=== PATIENT | male | born 1965 | race American Indian/Alaskan Native ===

== ENCOUNTER 2016-09-22 13:34 | Outpatient (CLI) | payer MEDICARE ==
[2016-09-22 14:00] LABS: Hematocrit 39.6 % (35.5-45.6); Hemoglobin 13.2 gm/dl (11.8-15.2); Mean Corpuscular HGB Conc 33 % (32-34); Mean Corpuscular Hemoglobin 32 pg (28-32); Mean Corpuscular Volume 95 fl (84-94); Platelet Count 104 K/mm3 (140-440); Red Blood Count 4.17 M/mm3 (3.65-5.03); Red Cell Distribution Width 13.5 % (13.2-15.2); White Blood Count 3.5 K/mm3 (4.5-11.0)
[2016-09-22 14:25] LABS: Alanine Aminotransferase 35 units/L (7-56); Albumin/Globulin Ratio 1.4 %; Alkaline Phosphatase 122 units/L (35-129); Anion Gap 15 mmol/L; BUN/Creatinine Ratio 12.85; Blood Urea Nitrogen 18 mg/dL (9-20); Calcium 8.9 mg/dL (8.4-10.2); Carbon Dioxide 30 mmol/L (22-30); Glucose 95 mg/dL (75-100); Potassium 3.3 mmol/L (3.6-5.0); Sodium 149 mmol/L (137-145); Total Protein 6.9 g/dL (6.3-8.2)
[2016-09-24 11:04] LABS: Vitamin D, 25-OH, Total 33 ng/mL (30-100)
== END 2016-09-22 13:35 | disposition home or self-care (01) ==
LOC: LAB 13:34
PROVIDERS: ATTEND Specialist
DX: G40.219 Localization-related (focal) (partial) symptomatic epilepsy and epileptic syndromes with complex partial seizures, intractable, without status epilepticus (principal)
CPT/HCPCS: 36415; 80053; 80156; 82306; 82607; 82747; 85027

== ENCOUNTER 2019-01-12 10:27 | Day surgery (SDC) | payer MEDICARE ==
[2019-01-12] MEDS ORDERED: SODIUM CHLORIDE 0.9% 1000 ML 1,000 ML IV SCH (12:00)
--- NOTE | 2019-01-12 12:08 | Anesthesia Day of Surgery ---
Anesthesia Day of Surgery - Day of Surgery Patient Examined: Yes Patient H&P Reviewed: Yes Patient is NPO: Yes
--- NOTE | 2019-01-12 12:12 | Anesthesia Consultation ---
Anesthesia Consult and Med Hx Date of service: 01/12/19 - Airway Anesthetic Teeth Evaluation: Good ROM Head & Neck: Adequate Mental/Hyoid Distance: Adequate Mallampati Class: Class II Intubation Access Assessment: Probably Good - Pre-Operative Health Status ASA Pre-Surgery Classification: ASA3 Proposed Anesthetic Plan: MAC - Cardiovascular System Hx Hypertension: Yes - Central Nervous System Hx Seizures: Yes (Grand Mal-last this AM because didn't sleep well last night) - Additional Comments Anesthesia Medical History Comments: Mother present at bedside
[2019-01-12] MEDS ORDERED: PROPOFOL 200 MG/20 ML VIAL IV ONE (12:32)
--- NOTE | 2019-01-12 12:46 | Short Stay Summary ---
Short Stay Documentation Date of service: 01/12/19 - History H&P: obtained from office - Allergies and Medications Current Medications: Allergies Antihistamines - Alkylamine Adverse Reaction (Verified 01/12/19 11:50) Unknown Antihistamines - Ethanolamine Adverse Reaction (Verified 01/12/19 11:50) Unknown Antihistamines - Ethylenediamine Adverse Reaction (Verified 01/12/19 11:50) Unknown Antihistamines - Piperazine Adverse Reaction (Verified 01/12/19 11:50) Unknown Antihistamines - Piperidine Adverse Reaction (Verified 01/12/19 11:50) Unknown Home Medications Medication Instructions Recorded Confirmed Last Taken Type Hydrazine Sulfate 100 mg PO BID 01/12/19 01/12/19 01/12/19 History Losartan Potassium 100 mg PO DAILY 01/12/19 01/12/19 01/11/19 History Vimpat 300 mg PO DAILY 01/12/19 01/12/19 01/12/19 History Vitamin D3 10,000 unit 1 tab PO DAILY 01/12/19 01/12/19 01/11/19 History cloNIDine 0.1 mg PO DAILY 01/12/19 01/12/19 01/12/19 History levETIRAcetam 1,000 mg PO DAILY 01/12/19 01/12/19 01/11/19 History Active Medications Sodium Chloride (Nacl 0.9% 1000 Ml) 1,000 mls @ 50 mls/hr IV DIRECT NORA Last Admin: 01/12/19 11:55 Dose: 50 mls/hr Documented by: - Brief post op/procedure progress note Date of procedure: 01/12/19 Findings: see dictation Estimated blood loss: none Pathology: list (antral biopsies for h.pylori) Specimen disposition: to lab Condition: stable - Disposition Condition at discharge: Good Disposition: DC-[id number] TO HOME OR SELFCARE - Discharge Diagnoses (1) Weight loss Status: Acute (2) Early satiety Status: Acute Short Stay Discharge Plan Activity: up only with assistance Weight Bearing Status: Non-Weight Bearing Diet: regular Follow up with: KELLY MAURICIO MD [Primary Care Provider] - 7 Days
--- NOTE | 2019-01-12 12:49 | Operative Report ---
Operative Report Operative Report: Date of procedure: 01/12/2019 Procedure: Esophagogastroduodenoscopy with biopsies of the antrum for H. pylori Preprocedure diagnosis: Early satiety and profound weight loss. Post procedure diagnosis: Moderate erosive antral gastritis. Endoscopist: Dr. Palomo Anesthesia: Monitored anesthesia care per anesthesia department Medications: Propofol per anesthesia. Estimated blood loss: 0 After careful discussion of the nature and purpose of the procedure as well as details the technique risks benefits and alternatives consent was obtained. The patient was placed in the left lateral decubitus position and medicated per anesthesia. The tip of the [email or web address] [id number] video scope was passed per orum under direct vision into the esophagus and advanced into the stomach and descending duodenum. The descending duodenum the duodenal bulb and pylorus were symmetrical and normal. The scope was withdrawn into the stomach and the stomach then gently insufflated with air. The antrum veal scattered erosions. No deep ulcers present no mass lesions present. Biopsies were taken for H. pylori.. The stomach was further insufflated and the scope was then retroflexed and partially withdrawn. The cardia, fundus, and body of the stomach were within normal limits and easily distensible.The scope was then withdrawn in the forward position. The esophagogastric junction was at [37 cm]. The esophageal body was normal throughout. The procedure was was well tolerated and the patient was observed in recovery. Impressions: [Erosive gastritis. No ulcers or mass lesions.] Plan: [Await biopsies.] Electronically signed: Olivier Palomo MD
[2019-01-12 13:23] VITALS: BP 164/90
--- NOTE | 2019-01-12 15:50 | Post Anesthesia Evaluation ---
- Post Anesthesia Evaluation Patient Participated: Yes Airway Patent: Yes Stable Respiratory Function: Yes Nausea/Vomiting: No Temp > 96.8F: Yes Pain Manageable: Yes Adequeate Hydration: Yes Anesthesia Complications: No Block Receding Appropriately: Not Applicable Patient on Ventilator: No
== END 2019-01-12 10:28 | disposition home or self-care (01) ==
LOC: GIO 10:27
PROVIDERS: ATTEND Internal Medicine Gastroenterology
DX: R63.4 Abnormal weight loss (principal); K29.60 Other gastritis without bleeding; K31.89 Other diseases of stomach and duodenum; I10 Essential (primary) hypertension; F80.9 Developmental disorder of speech and language, unspecified; Z83.71 Family history of colonic polyps; Z79.899 Other long term (current) drug therapy
CPT/HCPCS: 43239; 88305; 88342; J2704